=== PATIENT | male | born 1970 | race Caucasian/White ===

== ENCOUNTER 2025-06-11 11:23 | Inpatient (IN) | payer MEDICAID, OTHER ==
[~2025-06-11] VITALS: Ht 167.6 cm; Wt 94.8 kg
[2025-06-11 11:32] VITALS: O2SAT 99
[2025-06-11 13:02] LABS: BASOPHILS % 0.4 % (0.0-2.0); EOSINOPHILS % 0.8 % (0.0-5.0); HEMATOCRIT. 38.6 % (42.0-52.0); HEMOGLOBIN. 12.7 g/dL (14.0-18.0); LYMPHOCYTES % 23.7 % (20.0-50.0); MEAN PLATELET VOLUME 7.9 fl (7.4-10.4); MONOCYTES % 7.0 % (2.0-8.0); NEUTROPHILS % 68.1 % (40.0-76.0); PLATELET 296 x1000/uL (130-400); RED BLOOD CELL COUNT 4.68 mill/uL (4.7-6.1); RED CELL DISTRIBUTION WIDTH 14.0 % (11.6-14.6)
[2025-06-11 13:09] LABS: INR 1.0
[2025-06-11 13:13] LABS: CREATININE 0.8 mg/dL (0.6-1.3); UREA NITROGEN BLOOD 10 mg/dL (9-23)
[2025-06-11 13:14] LABS: ETHANOL BLOOD < 10 mg/dL (<10)
[2025-06-11 13:15] LABS: ASPARTATE AMINOTRANSFERASE 25 IU/L (<34); BILIRUBIN DIRECT 0.2 mg/dL (<=3.0); BILIRUBIN TOTAL 0.7 mg/dL (0.1-1.0); PROTEIN TOTAL 7.0 g/dL (6.0-8.3)
[2025-06-11] MEDS: IOHEXOL-350 100 ML BOTTLE ONE (13:37)
[2025-06-11] MEDS ORDERED: DEXTROSE 50% WATER 50ML SYRINGE IV PRN (14:45)
[2025-06-11] MEDS ORDERED: IPRATROPIUM/ALBUTEROL 0.5-3(2.5)MG/3ML NEB HHN PRN (14:45)
[2025-06-11] MEDS ORDERED: GUAIFENESIN 200MG/10ML SUGAR FREE UDC PO PRN (14:45)
[2025-06-11] MEDS ORDERED: ONDANSETRON HCL 4MG/2ML INJ IV PRN (14:45)
[2025-06-11] MEDS ORDERED: DOCUSATE SODIUM 100MG CAPSULE PO PRN (14:45)
[2025-06-11 15:00] VITALS: BP 153/112; PULSE 63; RESP 15; TEMP 36.4736
[2025-06-11] MEDS: HYDRALAZINE 20MG/ML VIAL IV PRN (15:22)
[2025-06-11] MEDS ORDERED: ATROPINE SULFATE 1MG/10ML SYR IV PRN (15:45)
[2025-06-11 16:00] VITALS: BP 153/112; PULSE 63; RESP 15; TEMP 36.4; O2SAT 99
[2025-06-11] MEDS: CLOPIDOGREL 75MG TABLET PO SCH (16:00)
[2025-06-11] MEDS: ASPIRIN 325MG EC TABLET PO SCH (16:00)
[2025-06-11] MEDS: FAMOTIDINE 20MG/2ML VIAL IV SCH (17:38)
[2025-06-11] MEDS: DEXT 5%/0.45% NACL 1000ML 1,000 ML IV SCH (17:38)
[2025-06-11 19:07] LABS: TRIGLYCERIDE 110.0 mg/dL (0-150); TROPONIN I HIGH SENSITIVITY 15 ng/L (3.0-53)
[2025-06-11 19:08] LABS: LDL CHOLESTEROL 125.0 mg/dL (5-100)
[2025-06-11 19:10] LABS: T4 FREE 1.46 ng/dL (0.89-1.76)
[2025-06-11] MEDS ORDERED: DOCUSATE SODIUM SUGAR FREE 100MG/10ML UDC NG PRN (19:30)
[2025-06-11] MEDS ORDERED: DOCUSATE SODIUM SUGAR FREE 100MG/10ML UDC PO PRN (19:30)
[2025-06-11 20:00] VITALS: BP 176/100; PULSE 56; RESP 15; TEMP 36.7; O2SAT 100
[2025-06-11] MEDS: ATORVASTATIN CALCIUM 40MG TABLET NG SCH (22:54)
[2025-06-12] VITALS: BP 168/102; PULSE 52; RESP 14; TEMP 36.6; O2SAT 100
[2025-06-12 01:27] LABS: CLARITY URINE CLEAR (CLEAR); COLOR URINE YELLOW (YELLOW); GLUCOSE URINE NEGATIVE (NEGATIVE); KETONES URINE 2+ (NEGATIVE); LEUKOCYTE ESTERASE URINE NEGATIVE (NEGATIVE); NITRITE URINE NEGATIVE (NEGATIVE); OCCULT BLOOD URINE NEGATIVE (NEGATIVE); PH URINE 6.5 (4.5-8.0); PROTEIN URINE NEGATIVE (NEGATIVE); SPECIFIC GRAVITY URINE 1.039 (1.005-1.030); UROBILINOGEN URINE 1.0 E.U./dL (0.2-1.0)
[2025-06-12 01:44] LABS: *AMPHETAMINES SCREEN URINE NEGATIVE (NEGATIVE)
[2025-06-12 01:45] LABS: *BARBITURATES SCREEN URINE NEGATIVE (NEGATIVE); *BENZODIAZEPINES SCREEN URINE NEGATIVE (NEGATIVE); *COCAINE SCREEN URINE NEGATIVE (NEGATIVE); CANNABINOID URINE SCREEN NEGATIVE (NEGATIVE); ECSTASY MDMA SCREEN URINE NEGATIVE (NEGATIVE); METHADONE URINE SCREEN NEGATIVE (NEGATIVE); OPIATES URINE SCREEN NEGATIVE (NEGATIVE); PHENCYCLIDINE URINE SCREEN NEGATIVE (NEGATIVE)
[2025-06-12 04:00] VITALS: BP 160/98; PULSE 48; RESP 14; TEMP 36.7; O2SAT 100
[2025-06-12 07:29] LABS: LDL CHOLESTEROL 119.0 mg/dL (5-100); TRIGLYCERIDE 118.0 mg/dL (0-150)
[2025-06-12 08:00] VITALS: BP 156/91; PULSE 53; RESP 13; TEMP 36.7; O2SAT 100
[2025-06-12] MEDS: ASPIRIN 81MG TABLET NG SCH (08:21)
[2025-06-12] MEDS: CLOPIDOGREL 75MG TABLET NG SCH (08:21)
[2025-06-12 11:08] LABS: PLATELET 301 x1000/uL (130-400); RED BLOOD CELL COUNT 4.85 mill/uL (4.7-6.1); RED CELL DISTRIBUTION WIDTH 14.2 % (11.6-14.6)
[2025-06-12 11:15] LABS: CREATININE 0.9 mg/dL (0.6-1.3); UREA NITROGEN BLOOD 9 mg/dL (9-23)
[2025-06-12 11:17] LABS: PHOSPHORUS 3.3 mg/dL (2.5-4.9)
[2025-06-12 12:00] VITALS: BP 149/90; PULSE 72; RESP 19; TEMP 37; O2SAT 100
[2025-06-12] MEDS: POTASSIUM CHLORIDE 20MEQ TABLET SR PO NR (13:21)
[2025-06-12 16:00] VITALS: BP 143/90; PULSE 68; RESP 12; TEMP 36.9; O2SAT 100
[2025-06-12 20:00] VITALS: BP 183/86; PULSE 64; RESP 15; TEMP 37; O2SAT 99
[2025-06-13] VITALS: BP 161/118; PULSE 74; RESP 18; TEMP 36.9; O2SAT 98
[2025-06-13] MEDS: HYDRALAZINE 20MG/ML VIAL IV PRN (00:55)
[2025-06-13 04:00] VITALS: BP 166/98; PULSE 63; RESP 19; TEMP 36.9; O2SAT 100
[2025-06-13 07:56] LABS: CREATININE 0.9 mg/dL (0.6-1.3)
[2025-06-13 07:57] LABS: UREA NITROGEN BLOOD 9 mg/dL (9-23)
[2025-06-13 07:59] LABS: PHOSPHORUS 2.9 mg/dL (2.5-4.9)
[2025-06-13 08:00] VITALS: BP 157/99; PULSE 72; RESP 18; TEMP 36.9; O2SAT 99
[2025-06-13 08:09] LABS: PLATELET 312 x1000/uL (130-400); RED BLOOD CELL COUNT 4.95 mill/uL (4.7-6.1); RED CELL DISTRIBUTION WIDTH 14.0 % (11.6-14.6)
[2025-06-13] MEDS: AMLODIPINE 2.5MG TABLET PO SCH (09:57)
[2025-06-13 12:00] VITALS: BP 166/92; PULSE 84; RESP 19; TEMP 37.1; O2SAT 99
[2025-06-13] MEDS: LOSARTAN 25 MG TABLET PO SCH (13:23)
[2025-06-13 16:00] VITALS: BP 166/103; PULSE 93; RESP 20; TEMP 37.2; O2SAT 99
[2025-06-13] MEDS: GABAPENTIN 100MG CAPSULE PO SCH (18:15)
[2025-06-13] MEDS: ENOXAPARIN 40MG/0.4ML SYR SUBCUT SCH (18:16)
[2025-06-13 20:00] VITALS: BP_SYST 161; BP_SYST 169; BP_DIAS 95; BP_DIAS 97; PULSE 100; PULSE 93; RESP 20; RESP 21; TEMP 37.3; O2SAT 99
[2025-06-13] MEDS ORDERED: GABAPENTIN 100MG CAPSULE PO SCH (22:00)
[2025-06-14] VITALS: BP 117/70; PULSE 92; RESP 21; TEMP 36.7; O2SAT 98
[2025-06-14 04:00] VITALS: BP 148/95; PULSE 85; RESP 13; TEMP 37; O2SAT 99
[2025-06-14 06:40] LABS: CREATININE 1.0 mg/dL (0.6-1.3); UREA NITROGEN BLOOD 9 mg/dL (9-23)
[2025-06-14 07:01] LABS: BASOPHILS % 0.6 % (0.0-2.0); EOSINOPHILS % 0.1 % (0.0-5.0); HEMATOCRIT. 40.9 % (42.0-52.0); HEMOGLOBIN. 13.6 g/dL (14.0-18.0); LYMPHOCYTES % 13.3 % (20.0-50.0); MEAN PLATELET VOLUME 8.4 fl (7.4-10.4); MONOCYTES % 9.7 % (2.0-8.0); NEUTROPHILS % 76.3 % (40.0-76.0); PLATELET 318 x1000/uL (130-400); RED BLOOD CELL COUNT 4.98 mill/uL (4.7-6.1); RED CELL DISTRIBUTION WIDTH 14.3 % (11.6-14.6)
[2025-06-14 07:06] LABS: TROPONIN I HIGH SENSITIVITY 7 ng/L (3.0-53)
[2025-06-14 08:00] VITALS: BP 142/96; PULSE 87; RESP 17; TEMP 36.8; O2SAT 100
[2025-06-14 12:00] VITALS: BP 177/96; PULSE 83; RESP 23; TEMP 37.3; O2SAT 98
[2025-06-14] MEDS: ENOXAPARIN 30MG/0.3ML SYR SUBCUT SCH (12:55)
[2025-06-14] MEDS: CLONIDINE 0.1MG TABLET PO SCH (14:42)
[2025-06-14 16:00] VITALS: BP 146/98; PULSE 88; RESP 16; TEMP 37.3; O2SAT 100
[2025-06-14 20:00] VITALS: BP 139/93; PULSE 85; RESP 24; TEMP 36.8; O2SAT 98
[2025-06-14] MEDS: AMLODIPINE 5MG TABLET PO SCH (20:12)
[2025-06-15] VITALS: BP 126/80; PULSE 78; RESP 18; TEMP 36.9; O2SAT 97
[2025-06-15 00:20] LABS: CLARITY URINE TURBID (CLEAR); COLOR URINE DARK YELLOW (YELLOW); GLUCOSE URINE NEGATIVE (NEGATIVE); KETONES URINE TRACE (NEGATIVE); LEUKOCYTE ESTERASE URINE NEGATIVE (NEGATIVE); NITRITE URINE NEGATIVE (NEGATIVE); OCCULT BLOOD URINE NEGATIVE (NEGATIVE); PH URINE 5.5 (4.5-8.0); PROTEIN URINE 1+ (NEGATIVE); SPECIFIC GRAVITY URINE 1.024 (1.005-1.030); UROBILINOGEN URINE 1.0 E.U./dL (0.2-1.0)
[2025-06-15 02:00] LABS: AMORPHOUS SEDIMENT URINE 2+ /lpf; BACTERIA URINE TRACE; RBC URINE 0-2 /hpf (0-2); SQUAMOUS EPITHELIAL CELL URINE 1+ /lpf (RARE/1+); WBC URINE 0-2 /hpf (0-2)
[2025-06-15 04:00] VITALS: BP 112/92; PULSE 80; RESP 20; TEMP 36.8; O2SAT 98
[2025-06-15 07:12] LABS: BASOPHILS % 0.7 % (0.0-2.0); EOSINOPHILS % 0.6 % (0.0-5.0); HEMATOCRIT. 41.9 % (42.0-52.0); HEMOGLOBIN. 13.7 g/dL (14.0-18.0); LYMPHOCYTES % 16.7 % (20.0-50.0); MEAN PLATELET VOLUME 9.1 fl (7.4-10.4); MONOCYTES % 10.6 % (2.0-8.0); NEUTROPHILS % 71.4 % (40.0-76.0); PLATELET 259 x1000/uL (130-400); RED BLOOD CELL COUNT 5.01 mill/uL (4.7-6.1); RED CELL DISTRIBUTION WIDTH 14.0 % (11.6-14.6)
[2025-06-15 07:13] LABS: CREATININE 1.1 mg/dL (0.6-1.3)
[2025-06-15 07:14] LABS: UREA NITROGEN BLOOD 14 mg/dL (9-23)
[2025-06-15 07:16] LABS: PHOSPHORUS 4.1 mg/dL (2.5-4.9)
[2025-06-15 08:00] VITALS: BP 112/76; PULSE 81; RESP 15; TEMP 36.5; O2SAT 96
[2025-06-15] MEDS ORDERED: LOSARTAN 50 MG TABLET PO SCH (09:00)
[2025-06-15] MEDS: AMLODIPINE 2.5MG TABLET PO SCH (09:34)
[2025-06-15] MEDS: LOSARTAN 25 MG TABLET PO SCH (09:34)
[2025-06-15] MEDS ORDERED: GABA-529 PO (10:00)
[2025-06-15] MEDS ORDERED: LIP40 NG (10:00)
[2025-06-15] MEDS ORDERED: CLON0.1T PO (10:00)
[2025-06-15] MEDS ORDERED: AMLO5TAB88 PO (10:00)
[2025-06-15] MEDS ORDERED: LOSA50TA41 PO (10:00)
[2025-06-15] MEDS ORDERED: ASPI-1160 NG (10:00)
[2025-06-15] MEDS ORDERED: CLOP-31 NG (10:00)
[2025-06-15 12:00] VITALS: BP 114/87; PULSE 76; RESP 19; TEMP 36.5; O2SAT 96
[2025-06-15 16:00] VITALS: BP 143/93; PULSE 77; RESP 20; TEMP 36.6; O2SAT 98
[2025-06-15 20:00] VITALS: BP 122/89; PULSE 87; RESP 20; TEMP 37.6
[2025-06-16] VITALS: BP 109/75; PULSE 74; TEMP 36.7
[2025-06-16 04:00] VITALS: BP 104/89; PULSE 63; RESP 15; TEMP 37
[2025-06-16 08:00] VITALS: BP 122/86; PULSE 78; RESP 13; TEMP 36.9
[2025-06-16 12:00] VITALS: BP 129/87; PULSE 77; RESP 19; TEMP 37.1
[2025-06-16 16:00] VITALS: BP 117/88; PULSE 67; RESP 16; TEMP 36.7
[2025-06-16] MEDS ORDERED: ACETAMINOPHEN 650MG/20.3ML UDC PO PRN (16:45)
[2025-06-16 20:00] VITALS: BP 130/84; PULSE 74; RESP 20; TEMP 36.8; O2SAT 97
[2025-06-17] VITALS: PULSE 96; RESP 20; TEMP 36.6; O2SAT 96
[2025-06-17 04:00] VITALS: PULSE 76; RESP 18; TEMP 36.3; O2SAT 97
[2025-06-17 08:00] VITALS: BP 131/87; PULSE 66; RESP 14; TEMP 36.7; O2SAT 98
[2025-06-17] MEDS: AMLODIPINE 2.5MG TABLET PO SCH (08:28)
[2025-06-17 12:00] VITALS: BP 142/89; PULSE 77; RESP 19; TEMP 36.7; O2SAT 92
[2025-06-17 16:00] VITALS: BP 146/90; PULSE 73; RESP 19; TEMP 37.1; O2SAT 97
[2025-06-17 20:00] VITALS: BP 148/95; PULSE 81; RESP 19; TEMP 37.3; O2SAT 94
[2025-06-18] VITALS: BP 143/90; PULSE 81; RESP 19; TEMP 37.2; O2SAT 94
[2025-06-18 04:00] VITALS: BP 144/92; PULSE 78; RESP 17; TEMP 37.3; O2SAT 100
[2025-06-18 08:00] VITALS: BP 151/97; PULSE 76; RESP 20; TEMP 37.1; O2SAT 98
[2025-06-18 12:00] VITALS: BP 136/98; PULSE 77; RESP 16; TEMP 37.2; O2SAT 77
[2025-06-18 12:13] VITALS: PULSE 70; RESP 19; TEMP 98.7
[2025-06-18] MEDS ORDERED: AMLODIPINE 5MG TABLET PO SCH (21:00)
== END 2025-06-18 13:50 | DRG 45 ==
LOC: ER 12:44 → EDBEDREQ 13:15 → EDBEDREQTM 13:15 → 3WST 14:58
PROVIDERS: ADMIT Internal Medicine; ATTEND Internal Medicine
DX: I63.89 Other cerebral infarction (principal); G81.91 Hemiplegia, unspecified affecting right dominant side; R29.706 NIHSS score 6; E11.9 Type 2 diabetes mellitus without complications; D64.9 Anemia, unspecified; E78.00 Pure hypercholesterolemia, unspecified; I63.81 Other cerebral infarction due to occlusion or stenosis of small artery; I10 Essential (primary) hypertension; E78.5 Hyperlipidemia, unspecified; M79.604 Pain in right leg; E87.6 Hypokalemia; J98.11 Atelectasis; R00.1 Bradycardia, unspecified; Z91.148 Patient's other noncompliance with medication regimen for other reason; Z79.899 Other long term (current) drug therapy
CPT/HCPCS: 36415; 70496; 70498; 70551; 71045; 73551; 73590; 80048; 80061; 80076; 80305; 80320; 81003; 82140; 83036; 83735; 84100; 84439; 84443; 84484; 85025; 85027; 92610; 93005; 93306; 93923; 93970; 93971; 97112; 97163; 97166; 97530; 99291; A4606; J0360; J1308; J1650; Q9967; G0480